=== PATIENT | female | born 1985 | race Caucasian/White ===

== ENCOUNTER → 2016-10-31 | Outpatient (CLI) | payer BC ==
--- NOTE | 2016-10-31 11:53 | KCIC ---
MRI of the thoracic spine without contrast 10/31/2016 CLINICAL HISTORY: Mid back pain which radiates down the right leg. TECHNIQUE: Unenhanced T1-weighted, T2-weighted and inversion recovery sagittal and T1-weighted and T2-weighted axial images of the thoracic spine were obtained. T2-weighted sagittal images of the cervical, thoracic and lumbar spine were obtained for localization purposes. FINDINGS: Minimal S-shaped curvature of the thoracolumbar spine is seen. The morphology and signal characteristics of all of the disks of the thoracic spine is within normal limits. The marrow signal of the visualized bony structures is within normal limits. The thoracic spinal cord is normal morphology, position, and signal characteristics. On the axial images throughout the thoracic spine, no significant degenerative changes are seen. No focal disc herniation is noted. No area of significant central spinal canal or neural foraminal stenosis is seen. IMPRESSION: Negative study. Electronically signed by: Santosh Mott MD (10/31/2016 11:49 AM) [facility]
== END | disposition home or self-care (01) ==
LOC: KCIC MRI 09:57
DX: M54.6 Pain in thoracic spine (principal)
CPT/HCPCS: 72146

== ENCOUNTER → 2017-04-04 | Day surgery (SDC) | payer BC ==
[~2017-04-04] MED LIST: HYDROmorphone 2 MG/ML VIAL IV; LIDOCAINE 1% PF 2 ML VIAL. ID; LIDOCAINE 2% PF Vial for OR 5 ML VIAL.; MORPHINE SULFATE 2 MG/ML DISP.SYRIN. IV; ONDANSETRON PF 4 MG/2 ML VIAL. IV; PROCHLORPERAZINE 10 MG/2 ML VIAL. IV; PROPOFOL 40 ML IV; fentaNYL PF VIAL 100 MCG/2 ML VIAL IV
[2017-04-04] MEDS: IV RINGERS,LACTATED 1000ML 1,000 ML IV (13:43)
[2017-04-04 14:22] LABS: NEG OBC UR NEG; POS OBC UR POS
== END | disposition home or self-care (01) ==
LOC: ENDOS 12:45
DX: K64.0 First degree hemorrhoids (principal); K52.9 Noninfective gastroenteritis and colitis, unspecified; K31.89 Other diseases of stomach and duodenum; F41.9 Anxiety disorder, unspecified; F32.9 Major depressive disorder, single episode, unspecified; Z88.0 Allergy status to penicillin; Z87.891 Personal history of nicotine dependence; Z72.89 Other problems related to lifestyle; Z79.899 Other long term (current) drug therapy; Z83.79 Family history of other diseases of the digestive system; Z98.51 Tubal ligation status; Z90.49 Acquired absence of other specified parts of digestive tract
CPT/HCPCS: 43239; 81025; 88305; J2704

== ENCOUNTER → 2020-05-04 | Outpatient (CLI) | payer BC ==
[2017-04-04 15:12] VITALS: BP 134/69
[~2020-05-04] MED LIST changes: +B CO1CAP6 PO; +BACL10TA PO; +CA C1TAB58 PO; +DIPH1TAB PO; +GABA300C18 PO; +GINK120C PO; -HYDROmorphone 2 MG/ML VIAL IV; +LACT1CAP2 PO; -LIDOCAINE 1% PF 2 ML VIAL. ID; -LIDOCAINE 2% PF Vial for OR 5 ML VIAL.; -MORPHINE SULFATE 2 MG/ML DISP.SYRIN. IV; +NAPR-683 PO; -ONDANSETRON PF 4 MG/2 ML VIAL. IV; -PROCHLORPERAZINE 10 MG/2 ML VIAL. IV; -PROPOFOL 40 ML IV; +TRAM50TA PO; +TURM538C PO; -fentaNYL PF VIAL 100 MCG/2 ML VIAL IV
--- NOTE | 2020-05-04 15:32 | PDOC1 ---
INITIAL PAIN CONSULT DATE OF SERVICE: DOS: DATE: 05/04/20 TIME: 15:24 CHIEF COMPLAINT: Chief Complaint: Neck pain, shoulder pain, bilateral upper extremity pain, right knee pain, low back pain HISTORY OF PRESENT ILLNESS: 34-year-old female presents with history of pain in multiple regions for about 6 to 7 years not the result of any specific injury or accident that she is aware of but pain is been getting worse in various regions consistent with fibromyalgia diagnosis from her primary physician. Patient reports the pain now is in the base of the neck and shoulders upper back mid back low back as well as the bilateral wrists and hands pressure on the right side right knee and right foot patient reports this can change with activity with weather changes with time of the year and no specific reasons at times. Patient reports the pain migrates and is worse now the neck and upper shoulders specially on the left s chasity. Patient scribes pain is sharp and stabbing changes during the day with activity worse with neck activity and fatigue. Patient reports her pain awakens her from sleep least 1-3 times a night does not affect her bowel bladder control does affect her ability to walk patient has had physical therapy multiple times most recently 2018 which does help but only temporarily also had epidural injections in the low back in 2018 which was not helpful. Patient is taking tramadol turmeric and gabapentin all of which do decrease the pain but only by about 20% at the most. Patient rates her disability rating 0-10, 10 being the worst, as a 5 with family home responsibilities 3 with occupational activities 1 with self-care and/support activities especially sleeping. Patient not had any recent diagnostic studies x-rays or MRIs etc. PAST MEDICAL HISTORY: PMH: Chronic pain, colitis PREVIOUS SURGERIES: Past Surgical Hx: Appendectomy 2004, tubal ligation 2006, oratory lap 2007 CURRENT MEDICATIONS: Current Meds: Active Scripts Medications Dose Route/Sig Max Daily Dose Days Date Category Turmeric (Turmeric Root Extract) 538 Mg Capsule 538 Mg PO BID 04/04/17 Reported Tramadol Hcl 50 Mg Tablet 1 Tab PO PRN Q6HRS PRN 04/04/17 Reported Baclofen 10 Mg Tablet 1 Tab PO TID 04/04/17 Reported Gabapentin (Gabapentin) 300 Mg Capsule 300 Mg PO TID 04/04/17 Reported ALLERGIES; Allergies: Coded Allergies: amoxicillin (Verified Allergy, Intermediate, Hives, 04/04/17) FAMILY HISTORY: Family Hx: Diabetes, endometriosis, heart disease SOCIAL HISTORY: Social Hx: Patient drinks alcohol 1-3 drinks about 3-4 nights a week does not smoke does not use any illegal illicit or recreational drugs and is single has 3 children living at home lives locally in [facility] and 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 PHYSICAL EXAM: VS: Blood pressure is 118/79 pulse 79 respirations 18 temperature 90.1 F height is 5 feet 5 inches weight 137 pounds PE: PHYSICAL EXAMINATION: GENERAL: The patient is awake, alert, oriented, appropriate, very pleasant demeanor HEENT: Shows normocephalic, atraumatic. Extraocular movements are intact and symmetrical. Oral cavity: Mucous membranes moist and pink. Dentition is intact. NECK: Shows anterior throat supple without palpable lymphadenopathy noted. Swallow reflex symmetrical. CHEST: Shows normal on inspection. Breath sounds are clear bilaterally, no ra les rhonchi wheezes auscultated. HEART: Shows S1, S2 clear. No murmurs auscultated. ABDOMEN: Soft, nontender, nondistended, flat. No palpable organomegaly is noted. No rebound or guarding demonstrated. BACK: Shows spine grossly in the midline. Normal-appearing cervical lordotic curvature. Cervical paraspinous muscles show symmetrical on inspection with palpation some moderate tenderness in the inferior aspect of the cervical paraspinous posterior bilaterally worse on the left than the right also into the superior medial trapezius again worse on the left than the right with very firm ropelike musculature consistent with trigger point areas of muscle bilaterally more tender on the left than the right. Patient has full rotation motion cervical spine both laterally greater than 45 degrees well is full extension full forward flexion without significant increase in pain. There is slightly increased thoracic kyphosis, some minor flattening of the lumbar lordotic curvature. Lumbar paraspinous muscles show symmetrical on inspection, on palpation shows some moderate tenderness diffusely throughout the upper, middle and lower distribution of the paraspinous muscles bilaterally and also into the lower thoracic paraspinous musculature, firm and tender, but without specific trigger points, without radiation of pain. The patient has good rotational motion of the lumbar spine, both laterally as well as extension and flexion without significant difficulty. No tenderness over the spinous processes, sacrum or sacroiliac regions. EXTREMITIES: Upper extremities show deep tendon reflexes at 2+ in the bicep and triceps tendons, motor exam is strong with caretaker resort strength rated 5 out of 5 as is bicep and tricep flexion. Peripheral pulses are 2+ radial no peripheral edema is noted bilaterally. Lower extremities show deep tendon reflexes 2+ in the patellar and tendo calcaneus tendons. Motor exam is 5 on a scale of 5 with right dorsiflexion, extension, quadriceps and hamstring flexion and 5/5 on the left. Peripheral pulses are 1+ posterior tibial. No peripheral edema is noted bilaterally. Lower extremities are warm and dry to touch, equal in color and ap pearance. SKIN: Shows warm and dry, good turgor. No edema. No sores, rashes or bruising throughout. IMPRESSION: Impression: 34-year-old female with 6 to 7-year history pain with myofascial component and multiple regions as noted. Colitis Plan: Options were discussed with the patient including conservative medical management physical therapies and interventional techniques. We discussed trigger point injections in the identified symptomatic musculature. Patient would like to pursue interventional techniques however her co-pay for her insurance is quite high and we will wait know this is more affordable. We did discuss medication management and will try Savella as she has not been tried on this with a diagnosis of fibromyalgia. Patient was given instructions well side effects beware with the medication and will follow up in approximately 1 month or sooner if necessary. LUNA LAMBERT MD May 04, 2020 15:32
== END | disposition home or self-care (01) ==
LOC: PNCL 13:44
PROVIDERS: ATTEND Anesthesiology
DX: M54.2 Cervicalgia (principal); M25.512 Pain in left shoulder; M25.511 Pain in right shoulder; M25.561 Pain in right knee; M54.5 Low back pain; F41.9 Anxiety disorder, unspecified; F32.9 Major depressive disorder, single episode, unspecified; Z98.51 Tubal ligation status; Z98.890 Other specified postprocedural states; Z82.49 Family history of ischemic heart disease and other diseases of the circulatory system; Z83.3 Family history of diabetes mellitus; Z87.891 Personal history of nicotine dependence; Z79.899 Other long term (current) drug therapy; Z88.1 Allergy status to other antibiotic agents
CPT/HCPCS: 99214; G0463

== ENCOUNTER → 2020-06-01 | Outpatient (CLI) | payer BC ==
[2017-04-04 15:12] VITALS: BP 134/69
--- NOTE | 2020-06-01 14:50 | PDOC ---
Progress Note - Pain Clinic Date of Service: DOS: DATE: 06/01/20 TIME: 14:46 Diagnosis: Dx: Myofascial pain Chronic pain syndrome History or Present Illness: HPI: 34-year-old female returns for follow-up status post initial evaluation and medication management with Savella. Patient reports no side effects with the medication. Patient was given a titration pack and reports she is nearly completed that now and is doing much better about 80% improvement with the myofascial pain. Patient reports also pain the base the neck and shoulders as well as the mid and low back on the left side but doing much better patient reports to increase her activity with greater distance walking doing household activities work activities sleeping better at night generally is not awaken her from sleep at this time. Patient reports is a 6 on scale 10 is worse over the past week for an average 3 days least is a 4 today patient reports is aching and dull constant pain the base the neck and shoulders as well as the upper back and the left. Patient reports no new motor or sensory deficits no new bowel or bladder incontinence or other complaints. Physical Exam: VS: Blood pressure is 109/75 pulse 91 respirations 18 temperature 98.3 F height is 5 feet 5 inches weight is 142 pounds PE: PHYSICAL EXAMINATION: GENERAL: The patient is awake, alert, oriented, appropriate, very pleasant demeanor HEENT: Shows normocephalic, atraumatic. Extraocular movements are intact and symmetrical. Oral cavity: Mucous membranes moist and pink. NECK: Shows anterior throat supple without palpable lymphadenopathy noted. Swallow reflex symmetrical. CHEST: Shows normal on inspection. Breath sounds are clear bilaterally, no rales or rhonchi, bilaterally. HEART: Shows S1, S2 clear. No murmurs auscultated. ABDOMEN: Soft, nontender, nondistended, flat. No palpable organomegaly is noted. No rebound or guarding demonstrated. BACK: Shows spine grossly in the midline. Normal-appearing cervical lordotic curvature. Cervical paraspinous muscles show symmetrical with inspection on palpation some mild tenderness in the inferior aspect the cervical paraspinous musculature bilaterally but only diffusely without radiation steroid to the superior medial trapezius with slightly firm ropelike musculature in the left greater than right side of the trapezius superiorly but not inferiorly or laterally. There is slightly increased thoracic kyphosis, some minor flattening of the lumbar lordotic curvature. Lumbar paraspinous muscles shows symmetrical on inspection with palpation some mild tenderness more on the left than the right but only diffusely without radiation. The patient has good rotational motion of the lumbar spine, both laterally as well as extension and flexion without significant difficulty. No tenderness over the spinous processes, sacrum or sacroiliac regions. EXTREMITIES: Lower extremities show deep tendon reflexes 2+ in the patellar and tendo calcaneus tendons. Motor exam is 5 on a scale of 5 with right dorsiflexion, extension, quadriceps and hamstring flexion and 5/5 on the left. Peripheral pulses are 1+ posterior tibial. No peripheral edema is noted bilaterally. Lower extremities are warm and dry to touch, equal in color and appearance. Upper extremities show deep tendon reflexes 2+ in the bicep and triceps tendons, motor exam strong with 5 out of 5 beverage sales consultant strength bicep and tricep flexion. Peripheral pulses are 2+ radial no peripheral edema is noted. SKIN: Shows warm and dry, good turgor. No edema. No sores, rashes or bruising throughout. Procedure: Procedure: Options were discussed with the patient. Patient chart reviews her current medication regimen updated current review systems updated today as well. We will proceed with refilling patient's medication add Savella 50 mg twice daily. Patient is yet to start physical therapy although has number to schedule appointment I encouraged her to follow through with this as well. Patient acknowledges. Patient will follow up in approximately 1 month as scheduled. Medication Injected: Med Injected: None Condition at Discharge: Condition at Discharge: Condition at discharge is stable. LUNA LAMBERT MD Jun 01, 2020 14:50
== END | disposition home or self-care (01) ==
LOC: PNCL 14:01
PROVIDERS: ATTEND Anesthesiology
DX: G89.4 Chronic pain syndrome (principal); M79.10 Myalgia, unspecified site; F41.9 Anxiety disorder, unspecified; F32.9 Major depressive disorder, single episode, unspecified; Z79.899 Other long term (current) drug therapy; Z98.890 Other specified postprocedural states; Z87.891 Personal history of nicotine dependence; Z72.89 Other problems related to lifestyle
CPT/HCPCS: 99212; G0463